=== PATIENT | female | born 1950 | race Hispanic/Latino ===

== ENCOUNTER → 2017-12-31 | Outpatient (CLI) | payer OTHER ==
[~2017-12-31] MED LIST: AMLO10TA4 PO; CARB1TAB20 PO; CHOL200013 PO; INSU100I13 SQ; LEVO100T12 PO; LISI40TA4 PO; METF850T2 PO; METO100T7 PO; SIMV20TA6 PO; aspirin PO
== END | disposition home or self-care (01) ==
LOC: RAH 09:31
PROVIDERS: ATTEND Family Medicine
DX: Z12.31 Encounter for screening mammogram for malignant neoplasm of breast (principal)
CPT/HCPCS: 77067

== ENCOUNTER → 2018-04-18 | Outpatient (CLI) | payer OTHER | END | disposition home or self-care (01) | LOC: RAH 08:19 | PROVIDERS: ATTEND Family Medicine | DX: I10 Essential (primary) hypertension (principal); I51.7 Cardiomegaly | CPT/HCPCS: 93306 ==

== ENCOUNTER → 2019-01-10 | Outpatient (CLI) | payer OTHER ==
[~2019-01-10] MED LIST changes: +METF-445 PO; -METF850T2 PO
== END | disposition home or self-care (01) ==
LOC: RAH 09:45
PROVIDERS: ATTEND Family Medicine
DX: Z12.31 Encounter for screening mammogram for malignant neoplasm of breast (principal)
CPT/HCPCS: 77067

== ENCOUNTER → 2019-03-14 | Outpatient (CLI) | payer OTHER | END | disposition home or self-care (01) | LOC: SHCH 12:53 | PROVIDERS: ATTEND Internal Medicine Cardiovascular Disease | DX: I11.9 Hypertensive heart disease without heart failure (principal); I65.23 Occlusion and stenosis of bilateral carotid arteries | CPT/HCPCS: 93306; 93880 ==

== ENCOUNTER → 2019-03-21 | Outpatient (CLI) | payer OTHER ==
[~2019-03-21] MED LIST changes: +REGADENOSON 0.4 MG/5 ML PF SYG IVP SCH
== END | disposition home or self-care (01) ==
LOC: SHCH 08:11
PROVIDERS: ATTEND Internal Medicine Cardiovascular Disease
DX: I67.82 Cerebral ischemia (principal); I10 Essential (primary) hypertension
CPT/HCPCS: 78452; 93017; 96374; A9500 ×2; J2785

== ENCOUNTER 2019-08-06 05:50 | Observation (INO) | payer OTHER ==
[2019-08-04 10:01] VITALS: BP 158/69
[2019-08-04 10:42] LABS: BASOPHILS % (AUTO) 0.9 % (0.0-5.0); EOSINOPHILS % (AUTO) 1.1 % (0.0-8.0); HEMATOCRIT 39.5 % (36-48); LYMPHOCYTES % (AUTO) 24.8 % (21.0-51.0); MEAN CORPUSCULAR HEMOGLOBIN 30.7 pg (27.0-33.0); MEAN CORPUSCULAR HGB CONC 33.4 g/dL (32.0-36.0); MEAN CORPUSCULAR VOLUME 91.7 fL (79-99); MONOCYTES % (AUTO) 8.2 % (3.0-13.0); PLATELET COUNT (AUTO) 289 K/uL (130-400); RED CELL DISTRIBUTION WIDTH 13.6 % (11.0-15.5); WHITE BLOOD COUNT (AUTO) 6.3 K/uL (4.8-10.8)
[2019-08-04 10:42] LABS: APPEARANCE,URINE CLEAR (CLEAR); BILIRUBIN,URINE NEGATIVE (NEGATIVE); COLOR,URINE YELLOW (YELLOW); GLUCOSE, URINE (UA) NEGATIVE (NEGATIVE); KETONES,URINE NEGATIVE (NEGATIVE); LEUKOCYTE ESTERASE ,URINE NEGATIVE (NEGATIVE); NITRATE,URINE NEGATIVE (NEGATIVE); OCCULT BLOOD,URINE NEGATIVE (NEGATIVE); PH,URINE 5.5 (5.0-8.0); PROTEIN,URINE NEGATIVE (NEGATIVE); UROBILINOGEN,URINE 0.2 mg/dL (0.2-1.0)
[2019-08-04 10:53] LABS: CREATININE 0.9 mg/dL (0.5-1.5); POTASSIUM 4.5 mmol/L (3.5-5.1)
[2019-08-04 10:54] LABS: INR 0.94 (0.85-1.15); PARTIAL THROMBOPLASTIN TIME 25.3 SEC (26.3-35.5); PROTHROMBIN TIME 9.9 SEC (9.6-11.6)
[~2019-08-06] VITALS: Ht 165.1 cm; Wt 104.6 kg
[2019-08-06] VITALS (11 sets, daily range): BP systolic 85–155; BP diastolic 45–94
[~2019-08-06 05:50] MED LIST changes: +ASPI-1181 PO; +CETI10TA57 PO; -CHOL200013 PO; -INSU100I13 SQ; +INSU100I35 SQ; -LEVO100T12 PO; +LEVO125T11 PO; +METO100T14 PO; -METO100T7 PO; +MULT400C3 PO; +PRAV10TA39 PO; -REGADENOSON 0.4 MG/5 ML PF SYG IVP SCH; -SIMV20TA6 PO; -aspirin PO
[2019-08-06] MEDS ORDERED: SODIUM CHLORIDE 0.9% 1000ML 1,000 ML IV ONE (06:10)
--- NOTE | 2019-08-06 06:49 | NUR ---
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
[2019-08-06] MEDS ORDERED: HEPARIN SODIUM 1000UNIT/ML 10ML VIAL ONE (07:23)
[2019-08-06] MEDS ORDERED: IOHEXOL-350 75 ML VIAL IV ONE (07:24)
[2019-08-06] MEDS ORDERED: NITROGLYCERIN 5 MG/ML 10 ML VIAL IV ONE (07:24)
[2019-08-06] MEDS ORDERED: IOHEXOL-350 50ML VIAL IV ONE (07:24)
[2019-08-06] MEDS ORDERED: LIDOCAINE HCL 2% 20ML ONE (07:25)
[2019-08-06] MEDS ORDERED: SODIUM BICARB 50MEQ 50ML VIAL ONE (07:39)
[2019-08-06] MEDS ORDERED: SODIUM CHLORIDE 0.9% 1000ML 1,000 ML IV SCH ×2 (08:00→09:15)
[2019-08-06] MEDS ORDERED: TICAGRELOR 90 MG TABLET ONE (09:13)
[2019-08-06] MEDS ORDERED: ASPIRIN 81MG TAB.CHEW ONE (09:13)
[2019-08-06] MEDS ORDERED: DEXTROSE 50%-WATER 50 ML DISP.SYRIN IV PRN (09:15)
[2019-08-06] MEDS ORDERED: INSULIN HUMULIN 70/30 100 UNIT/ML 3ML SQ SCH ×2 (11:30→16:30)
[2019-08-06] MEDS: INSULIN HUMULIN R 100 UNIT/ML 3ML SQ SCH ×3 (11:30→21:00)
[2019-08-06 12:03] LABS: CREATININE 0.8 mg/dL (0.5-1.5); POTASSIUM 3.9 mmol/L (3.5-5.1)
[2019-08-06] MEDS: METOPROLOL TARTRATE 50 MG TAB PO SCH (16:59)
[2019-08-06] MEDS: TICAGRELOR 90 MG TABLET PO SCH (20:36)
[2019-08-06] MEDS: CARBIDOPA-LEVODOPA 25-100 TAB PO SCH (20:37)
--- NOTE | 2019-08-06 20:45 | NUR ---
PT IN BED, ABLE TO AMBULATE S/P C. RIGHT GROIN IS SOFT TO TOUCH. NO PAIN STATED. MINIMAL DISCOLORATION AROUND SITE. PT STATED NUMBNESS TO RIGHT EXTREMITY. VENOUS DOPPLER-BILATERAL COMPLETED. PENDING RESULTS.
[2019-08-06] MEDS ORDERED: LISINOPRIL 40 MG TABLET PO SCH (21:00)
[2019-08-06] MEDS ORDERED: ATORVASTATIN CALCIUM 10 MG TABLET PO SCH (21:00)
[2019-08-06] MEDS ORDERED: ASPIRIN 81 MG EC TAB PO SCH (21:00)
--- NOTE | 2019-08-06 21:00 | NUR ---
PT BS 50. DEXTROSE GIVEN VIA IV. GIVEN SNACKS AND APPLE JUICE. STATED HER INSULIN ROUTINE WAS CHANGED AND SHE FEELS THAT IS WHY HER BLOOD SUGAR WAS AFFECTED.
[2019-08-07] MEDS ORDERED: ACETAMINOPHEN 325 MG TAB PO PRN ×2 (01:00→07:00)
[2019-08-07] MEDS ORDERED: ACETAMINOPHEN 325 MG TAB ONE (01:04)
[2019-08-07] MEDS: INSULIN HUMULIN R 100 UNIT/ML 3ML SQ SCH (03:55)
[2019-08-07 04:09] LABS: BASOPHILS % (AUTO) 0.6 % (0.0-5.0); EOSINOPHILS % (AUTO) 1.3 % (0.0-8.0); HEMATOCRIT 36.9 % (36-48); LYMPHOCYTES % (AUTO) 26.6 % (21.0-51.0); MEAN CORPUSCULAR HGB CONC 33.8 g/dL (32.0-36.0); MEAN CORPUSCULAR VOLUME 91.7 fL (79-99); MONOCYTES % (AUTO) 10.3 % (3.0-13.0); NEUTROPHILS % (AUTO) 61.2 % (40.0-77.0); NUCLEATED RED BLOOD CELLS 0.1 % (0.0-0.19); PLATELET COUNT (AUTO) 276 K/uL (130-400); RED BLOOD CELL COUNT(AUTO) 4.02 MIL/uL (4.00-5.50); RED CELL DISTRIBUTION WIDTH 13.2 % (11.0-15.5); WHITE BLOOD COUNT (AUTO) 6.6 K/uL (4.8-10.8)
[2019-08-07 04:25] LABS: CREATININE 0.8 mg/dL (0.5-1.5); MAGNESIUM 1.7 mg/dL (1.80-2.40); PHOSPHORUS 3.2 mg/dL (2.5-4.9); POTASSIUM 3.9 mmol/L (3.5-5.1)
[2019-08-07 04:37] VITALS: BP 130/58
[2019-08-07] MEDS ORDERED: MAGNESIUM 2GM PREMIX 50ML 50 ML IV PRN (06:00)
[2019-08-07] MEDS ORDERED: LEVOTHYROXINE 125 MCG TABLET ONE (06:03)
[2019-08-07] MEDS: METOPROLOL TARTRATE 50 MG TAB PO SCH (06:07)
[2019-08-07] MEDS ORDERED: LEVOTHYROXINE 125 MCG TABLET PO SCH (07:30)
[2019-08-07] MEDS ORDERED: INSULIN HUMULIN 70/30 100 UNIT/ML 3ML SQ SCH (07:30)
[2019-08-07 07:44] VITALS: BP 161/66
[2019-08-07] MEDS ORDERED: MULTIVITAMIN WITH MINERALS TABLET PO SCH (09:00)
[2019-08-07] MEDS ORDERED: AMLODIPINE BESYLATE 5 MG TAB PO SCH (09:00)
[2019-08-07] MEDS ORDERED: CETIRIZINE HCL 5 MG TABLET PO SCH (09:00)
[2019-08-07] MEDS: CARBIDOPA-LEVODOPA 25-100 TAB PO SCH (09:45)
[2019-08-07] MEDS: TICAGRELOR 90 MG TABLET PO SCH (09:45)
--- NOTE | 2019-08-07 10:45 | NUR ---
DISCHARGE Pt discharged as ordered. Peripheral IV removed, catheter intact upon removal. Telepack removed. All belongings given to the pt. Taken to lobby in wheelchair in no distress. Spouse at bedside.
== END 2019-08-07 11:00 | disposition home or self-care (01) ==
LOC: DAH 05:50 → DAHIP 05:51 → DAH 05:51 → 2DH 09:53
PROVIDERS: ADMIT Internal Medicine Critical Care Medicine; ATTEND Internal Medicine Critical Care Medicine
DX: I25.119 Atherosclerotic heart disease of native coronary artery with unspecified angina pectoris (principal); E11.9 Type 2 diabetes mellitus without complications; E78.5 Hyperlipidemia, unspecified; J44.9 Chronic obstructive pulmonary disease, unspecified; I11.0 Hypertensive heart disease with heart failure; I50.32 Chronic diastolic (congestive) heart failure; I65.22 Occlusion and stenosis of left carotid artery; G20 Parkinson's disease; Z79.4 Long term (current) use of insulin; Z79.890 Hormone replacement therapy; Z88.2 Allergy status to sulfonamides; Z90.710 Acquired absence of both cervix and uterus; Z79.899 Other long term (current) drug therapy
CPT/HCPCS: 36223; 36225; 36415 ×3; 71045; 80048 ×3; 80061; 81003; 82948 ×7; 83735; 84100; 85025 ×2; 85610; 85730; 93005; 93458; 93970; 96365; 96366; 96372; A4215; A4216; A4221; A4222; A4223 ×3; A4606; C1760; C1769; C1874; C1887; C1894; C9600; G0378 ×23; J1644 ×2; J1815 ×2; J3475; J3490 ×3; J7030; J7070; Q9967 ×2

== ENCOUNTER → 2020-05-14 | Outpatient (CLI) | payer OTHER | END | disposition home or self-care (01) | DX: Z12.31 Encounter for screening mammogram for malignant neoplasm of breast (principal) | CPT/HCPCS: 77067 ==

== ENCOUNTER → 2021-07-01 | Outpatient (CLI) | payer OTHER ==
[~2021-07-01] MED LIST changes: -ASPI-1181 PO; +ASPI-1443 PO; -LISI40TA4 PO; +LISI40TA9 PO
== END | disposition home or self-care (01) ==
LOC: RAH 13:27
PROVIDERS: ATTEND Family Medicine
DX: Z12.31 Encounter for screening mammogram for malignant neoplasm of breast (principal)
CPT/HCPCS: 77067

== ENCOUNTER → 2022-07-03 | Outpatient (CLI) | payer OTHER ==
[~2022-07-03] MED LIST changes: -CARB1TAB20 PO; +CARB1TAB35 PO
== END | disposition home or self-care (01) ==
LOC: RAH 09:30
PROVIDERS: ATTEND Family Medicine
DX: Z12.31 Encounter for screening mammogram for malignant neoplasm of breast (principal)
CPT/HCPCS: 77067

== ENCOUNTER → 2023-07-05 | Outpatient (CLI) | payer OTHER | END | disposition home or self-care (01) | LOC: RAH 09:04 | PROVIDERS: ATTEND Family Medicine | DX: Z12.31 Encounter for screening mammogram for malignant neoplasm of breast (principal) | CPT/HCPCS: 77067 ==

== ENCOUNTER → 2023-09-12 | Outpatient (CLI) | payer OTHER ==
[2023-09-12 16:21] LABS: CREATININE 1.3 mg/dL (0.5-1.5); POTASSIUM 4.4 mmol/L (3.5-5.1)
== END | disposition home or self-care (01) ==
LOC: LAB 15:33
PROVIDERS: ATTEND Internal Medicine Cardiovascular Disease
DX: I65.22 Occlusion and stenosis of left carotid artery (principal)
CPT/HCPCS: 36415; 80048

== ENCOUNTER → 2025-03-20 | Outpatient (CLI) | payer OTHER ==
[~2025-03-20] MED LIST changes: +AMLO-915 PO; -AMLO10TA4 PO
== END | disposition home or self-care (01) ==
LOC: RAH 13:24
PROVIDERS: ATTEND Family Medicine
DX: Z12.31 Encounter for screening mammogram for malignant neoplasm of breast (principal)
CPT/HCPCS: 77067